=== PATIENT | female | born 2005 | race Caucasian/White ===

== ENCOUNTER 2023-04-06 11:33 | Outpatient (AMB) | payer OTHER, SELFPAY ==
--- NOTE | 2023-04-06 12:54 | AM.OFFWIN_ITS ---
Intake Vital Signs 04/06/23 13:07 Weight 134 lb 6 oz BP 110/72 Blood Pressure Location Lt brachial Position Sitting Pulse 64 Pulse Source Pulse Oximeter Temp 97.8 F Temp Source Temporal Artery Scan Pulse Oximetry (%) 100 Oxygen Delivery Method Room Air Intake Visit Reasons: MOLDING LINE ASSISTANT, rash on left lower arm [phone] Intake Note: Pt is here c/o rash on her lower left arm. Pt states she was given a medicated ointment at [facility] two weeks ago, finished the course and the rash has not gone away. Patient Tobacco Use Status: Never used Tobacco Allergies No Known Allergies Allergy (Verified 04/06/23 13:19) Medication List - Last Reconciled 04/06/23 by Tay Hernández MD norgestimate-ethinyl estradiol 0.18/0.215/0.25 mg-25 mcg (Prb-Xs-Vagdbx) 1 tab PO DAILY Do you need a note to return to daycare/school/sports/work: Yes HPI MOLDING LINE ASSISTANT, rash on left lower arm [phone] HPI Details 18-year-old female presents to the [facility] for a sick visit. Patient has a rash on her left forearm. She was seen at a different walk-in 2 weeks ago and given treatment. Her rash began to fade but did not completely resolve. [facility] Social History Patient Tobacco Use Status: Never used Tobacco Physical Exam Vital Signs: Last Vital Signs Temp 97.8 F 04/06/23 13:07 Pulse 64 04/06/23 13:07 BP 110/72 04/06/23 13:07 Pulse Ox 100 04/06/23 13:07 Oxygen Delivery Method Room Air 04/06/23 13:07 Skin Other: Left forearm: 3 centimetres circular rash with central clearing. The margins are heaped. The rash is fading. Assessment & Plan Assessment & Plan (1) Tinea corporis: Code(s): B35.4 - Tinea corporis Plan: Ketoconazole ointment prescribed. Advised to use the ointment for two more weeks. Coding Level of Care Code Est Pt Level 3 (58289) Diagnoses Tinea corporis B35.4
[2023-04-06 13:07] VITALS: BP 110/72; PULSE 64; TEMP 36.6; O2SAT 100
== END 2023-04-06 13:46 | disposition home or self-care (01) ==
PROVIDERS: Visit Provider Internal Medicine
DX: B35.4 Tinea corporis (principal)
CPT/HCPCS: 99213

== ENCOUNTER 2023-12-03 07:19 | Outpatient (REF) | payer OTHER, SELFPAY ==
[2023-12-03 10:23] LABS: MANUAL DIFF FLAG NO
[2023-12-03 10:33] LABS: Basophils Percent Auto 0.6 % (0-2); Eosinophils Absolute Auto 0.1 X10*3/uL (0.0-0.4); Eosinophils Percent Auto 1.1 % (0-4); Hematocrit 38.8 % (37.0-47.0); Hemoglobin 13.7 g/dl (12.0-16.0); Imm Gran Abs Auto 0.02 X10*3/uL (0.00-0.03); Imm Gran Pct Auto 0.3 % (0.0-0.4); Lymphocytes Absolute Auto 1.8 X10*3/uL (1.2-4.9); Lymphocytes Percent Auto 27.5 % (20-40); Mean Corpuscular HGB Conc 35.3 g/dl (31.0-35.0); Mean Corpuscular Hemoglobin 30.2 pg (27.0-33.0); Mean Corpuscular Volume 85.5 fL (80.0-98.0); Monocytes Absolute Auto 0.6 X10*3/uL (0.1-1.2); Neutrophils Absolute Auto 4.1 x10*3/uL (2.0-8.3); Neutrophils Percent Auto 61.5 % (45-73); Platelet Count 246 X10*3/uL (160-400); Red Blood Count 4.54 X10*6/uL (4.20-5.50); White Blood Count 6.7 X10*3/uL (4.8-10.8)
[2023-12-03 10:50] LABS: Alanine Aminotransferase 16 U/L (0-31); Albumin Level 4.5 g/dL (3.5-5.0); Alkaline Phosphatase 62 U/L (39-117); Anion Gap 12 (12-20); Aspartate Amino Transferase 18 U/L (5-31); Bilirubin Total 0.6 mg/dL (0.0-1.0); Blood Urea Nitrogen 10 mg/dL (9-16); Calcium 9.7 mg/dL (8.4-10.2); Carbon Dioxide 23 mmol/L (22-29); Chloride 106 mmol/L (96-108); Cholesterol 196 mg/dL (<200); Estimated Glomerular Filt Rate > 60; Glucose Fasting 87 mg/dL (60-99); HDL Cholesterol 65 mg/dL (>40); Iron 117 mcg/dL (30-160); LDL Cholesterol Calculated 113 mg/dL (<100); Percent Iron Saturation 30 % (15-50); Potassium 3.6 mmol/L (3.3-5.1); Sodium 137 mmol/L (135-145); Total Iron Binding Capacity 385 mcg/dL (228-428); Total Protein 7.4 g/dL (6.5-8.0); Triglycerides 92 mg/dL (<150); Unsaturated Iron Binding 268 ug/dL
== END 2023-12-03 07:20 | disposition home or self-care (01) ==
LOC: HO.HMGCLDS 07:19
PROVIDERS: PCP Internal Medicine; Visit Provider Internal Medicine
DX: Z00.00 Encounter for general adult medical examination without abnormal findings (principal); Z13.6 Encounter for screening for cardiovascular disorders
CPT/HCPCS: 36415; 80053; 80061; 83540; 84443; 85025

== ENCOUNTER 2023-12-10 07:34 | Outpatient (AMB) | payer OTHER, SELFPAY ==
[2023-12-10 07:41] VITALS: BP 94/54; PULSE 75; O2SAT 99; BMI 21.5
--- NOTE | 2023-12-10 07:41 | A.OFFPC_ITS ---
Vital Signs 12/10/23 07:41 Height 5 ft 4 in Weight 125 lb BMI 21.5 BP 94/54 L Blood Pressure Location Lt brachial Position Sitting Pulse 75 Pulse Source Pulse Oximeter Pulse Oximetry (%) 99 Oxygen Delivery Method Room Air Intake Visit Reasons: New patient-Requesting physical Intake Note: Pt is here today as a New Patient to est care/ PE Allergies No Known Allergies Allergy (Verified 12/10/23 07:42) Medication List - Last Reconciled 12/10/23 by Jessica Saldana MD norgestimate-ethinyl estradiol 0.18/0.215/0.25 mg-25 mcg ([id number]-Tm-[id number]) 1 tab PO DAILY tretinoin 0.025% (Retin-A) appl topical Tobacco use date assessed: 12/10/23 Dental Screening Dental Screen Date: 12/10/23 Did you have a dental visit in the last 12 months?: No Did you have a dental problem in the last 6 months where you did not have access to dental care?: No Was dental information given to patient?: Patient has dentist HPI New patient-Requesting physical HPI Details Pt presents for , [facility] Social History (Updated 12/10/23 @ 08:16 by Jessica Saldana MD) Household Members Other:: lives with family, senior at [employer], applying to dental school Housing: House Patient Tobacco Use Status: Never used Tobacco e-Cigarette/Vaping Use: Never Used service: No Current occupational status: employed Cognitive needs: No Hearing needs: No Vision needs: Yes Questionnaire PHQ-9 Over the last 2 weeks, how often have you been bothered by any of the following problems? 1. Little interest or pleasure in doing things: not at all 2. Feeling down, depressed, or hopeless: not at all 3. Trouble falling or staying asleep, or sleeping too much: not at all 4. Feeling tired or having little energy: not at all 5. Poor appetite or overeating: not at all 6. Feeling bad about yourself - or that you are a failure or have let yourself or your family down: not at all 7. Trouble concentrating on things, such as reading the newspaper or watching television: not at all 8. Moving or speaking so slowly that other people could have noticed. Or the opposite - being so fidgety or restless that you have been moving around a lot more than usual: not at all 9. Thoughts that you would be better off or of hurting yourself in some way: not at all Total score: 0 Depression Screening Interpretation: Negative Depression Screening Done: Yes Source: Developed by Drs. Alexandru Sparks, Daphne Hartley, Andrea Alejandro and colleagues, with an educational aleyda from [employer]. Thrive Questionnaire Date Thrive assessed: 12/10/23 I am a: Patient What is your living situation today?: I have a steady place to live Within the past 12 months, did the food you bought not last and you didn't have the money to get more?: Never true Within the past 12 months, did you worry whether your food would run out before you got money to buy more?: Never true Do you have trouble paying for medicines?: No Do you have trouble getting transportation to medical appointments?: No Do you have trouble paying your heating and electricity bill?: No Do you have trouble taking care of your child, family member or friend?: No Do you have trouble with day-to-day activities such as bathing, preparing meals, shopping, managing finances, etc.?: No Are you currently unemployed and looking for a job?: No Are you interested in more education?: No Please select the resources that you would like help with: Housing/Halfway Currently or been in a relationship where the following occur: No concerns reported THRIVE Score: 0 AUDIT C Alcohol Use Questionnaire (AUDIT-C) 1. How often do you have a drink containing alcohol?: Never Total Score: 0 BLAYNE-7 AMB Questionnaire BLAYNE-7 Date BLAYNE - 7 assessed: 12/10/23 Feeling nervous, anxious, or on edge: 0 = Not at all Not being able to stop or control worryin = Not at all Worrying too much about different things: 0 = Not at all Trouble relaxin = Not at all Being so restless that it is hard to sit still: 0 = Not at all Becoming easily annoyed or irritable: 0 = Not at all Feeling afraid as if something awful might happen: 0 = Not at all Total BLAYNE-7 score (0-4 normal; 5-9 mild; 10-14 moderate; 15-21 severe): 0 Source: Developed by Drs. Alexandru Sparks, Daphne Hartley, Andrea Alejandro and colleagues, with an educational aleyda from [employer]. Review of Systems Const All systems reviewed & are unremarkable except as noted in HPI and below Reports no additional complaints Eyes Reports no additional complaints ENT Reports no additional complaints Card Reports no additional complaints Resp Reports no additional complaints GI Reports no additional complaints Reports no additional complaints Musc Reports no additional complaints Physical exam (Primary Care) Vital Signs: Last Vital Signs Pulse 75 12/10/23 07:41 BP 94/54 L 12/10/23 07:41 Pulse Ox 99 12/10/23 07:41 Oxygen Delivery Method Room Air 12/10/23 07:41 BMI result Body Mass Index 21.5 Tobacco/Smoking Status: Tobacco use Status Tobacco use date assessed 12/10/23 12/10/23 07:44 Patient Tobacco Use Status Never used Tobacco 12/10/23 07:44 e-Cigarette/Vaping Use Never Used 12/10/23 07:44 PHQ-9: PHQ-9 Score PHQ-9: Total score 0 12/10/23 07:44 Depression Screening Interpretation: Negative Thrive Assessment: Date of Thrive Assessment Date Thrive assessed 12/10/23 12/10/23 07:44 Currently or been in a relationship where the following occur: No concerns reported Const General: no acute distress HENMT Head: Yes normal to inspection Ears: hearing grossly normal bilaterally General nose exam: Normal external nose present Face and sinus: Yes normal facial exam Mouth: Normal oral and palatal mucosa present Throat: Yes posterior oropharynx normal Eyes General: appearance normal, both eyes and all related structures Neck Neck: Yes no lymphadenopathy and Yes supple Resp Effort & Inspection: normal respiratory effort Auscultation: clear to auscultation bilaterally Cardio Rhythm: regular rhythm Heart sounds: S1 normal heart sound present and S2 normal heart sound present GI Inspection: Yes normal to inspection Palpation (GI): Soft to palpation Percussion: Yes normal to percussion Auscultation: normal bowel sounds Assessment and Plan Assessment & Plan (1) 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 Code(s): Z01.419 - Encounter for gynecological examination (general) (routine) without abnormal findings (2) Annual physical exam: Code(s): Z00.00 - Encounter for general adult medical examination without abnormal findings Plan: well balanced diet, regular exercise discussed with the patient (3) Nasal congestion: Code(s): R09.81 - Nasal congestion Plan: Patient is established with ENT Orders: Referrals Ear/Nose/Throat Referral R09.81 - Nasal congestion Medications: New tretinoin 0.025% (Retin-A) 1 appl topical Q OTHER DAY 45 grams 1RF Coding Level of Care Code New Pt Prev Care 18-39yr(39013 Diagnoses Normal pelvic exam Z01.419 Annual physical exam Z00.00 Nasal congestion R09.81
== END 2023-12-10 08:25 | disposition home or self-care (01) ==
PROVIDERS: PCP Internal Medicine; Visit Provider Internal Medicine
DX: Z01.419 Encounter for gynecological examination (general) (routine) without abnormal findings (principal); Z00.00 Encounter for general adult medical examination without abnormal findings; R09.81 Nasal congestion
CPT/HCPCS: 99385